=== PATIENT | female | born 1995 | race Two or more races ===

== ENCOUNTER → 2017-02-21 | Outpatient (CLI) | payer OTHER ==
[2016-11-07 10:55] VITALS: BP 120/67
[~2017-02-21] MED LIST: DOCU60SY6 PO; FERR-26 PO; HYDR-2666 PO; LEVO750T31 PO; PNV1TABL25 PO
--- NOTE | 2017-02-21 14:41 | RAD ---
Pelvic ultrasound, 02/21/2017: History: Check IUD placement, intermittent pain Transabdominal and transvaginal scans were obtained. The uterus is retroverted. The echogenic IUD is visible in the central uterine cavity. The ovaries are of normal size. They contain small follicular cysts. No adnexal mass is seen. There is a small amount of free fluid in the cul-de-sac. There is some echogenic material within this fluid. IMPRESSION: 1. The IUD is in normal position within the central uterine cavity. 2. Small amount of slightly complex fluid in the pelvis.
== END | disposition home or self-care (01) ==
LOC: US 12:51
PROVIDERS: ATTEND Nurse Practitioner Family
DX: N85.4 Malposition of uterus (principal); R10.2 Pelvic and perineal pain
CPT/HCPCS: 76830; 76856